=== PATIENT | female | born 1950 | race Caucasian/White ===

== ENCOUNTER 2017-06-14 09:26 | Day surgery (SDC) | payer BC, OTHER ==
[2017-06-14] MEDS ORDERED: D5 LR 1000 ML 1,000 ML IV ONE (09:51)
[2017-06-14] MEDS ORDERED: DIPRIVAN VIAL 20 ML ONE (11:39)
[2017-06-14 12:17] VITALS: BP 138/70
== END 2017-06-14 12:20 | disposition home or self-care (01) ==
LOC: SURG1 09:26
PROVIDERS: ATTEND Internal Medicine Gastroenterology
PROC: 0D757ZZ Dilation of Esophagus, Via Natural or Artificial Opening (ICD-10-PCS; principal; 2017-06-14 15:00)
PROC: 0DB88ZX Excision of Small Intestine, Via Natural or Artificial Opening Endoscopic, Diagnostic (ICD-10-PCS; principal; 2017-06-14 15:00)
PROC: 0DJ08ZZ Inspection of Upper Intestinal Tract, Via Natural or Artificial Opening Endoscopic (ICD-10-PCS; principal; 2017-06-14 15:00)
PROC: 0DB68ZX Excision of Stomach, Via Natural or Artificial Opening Endoscopic, Diagnostic (ICD-10-PCS; principal; 2017-06-14 15:00)
DX: R13.19 Other dysphagia (principal); R10.13 Epigastric pain; K20.8 Other esophagitis; K22.4 Dyskinesia of esophagus; K22.2 Esophageal obstruction; K29.60 Other gastritis without bleeding; K44.9 Diaphragmatic hernia without obstruction or gangrene; R11.2 Nausea with vomiting, unspecified; K21.9 Gastro-esophageal reflux disease without esophagitis
CPT/HCPCS: A4217; J3490; J7120

== ENCOUNTER 2017-06-21 08:28 | Day surgery (SDC) | payer BC, OTHER ==
[2017-06-21] MEDS ORDERED: D5 LR 1000 ML 1,000 ML IV ONE (08:42)
[2017-06-21] MEDS ORDERED: DIPRIVAN VIAL 20 ML ONE (09:50)
[2017-06-21 11:05] VITALS: BP 120/60
== END 2017-06-21 10:35 | disposition home or self-care (01) ==
LOC: SURG1 08:28
PROVIDERS: ATTEND Internal Medicine Gastroenterology
PROC: 0DBE8ZX Excision of Large Intestine, Via Natural or Artificial Opening Endoscopic, Diagnostic (ICD-10-PCS; principal; 2017-06-21 11:15)
PROC: 0DJD8ZZ Inspection of Lower Intestinal Tract, Via Natural or Artificial Opening Endoscopic (ICD-10-PCS; principal; 2017-06-21 11:15)
DX: R19.4 Change in bowel habit (principal); Z86.010 Personal history of colon polyps; K64.0 First degree hemorrhoids
CPT/HCPCS: A4217; J3490; J7120

== ENCOUNTER → 2017-10-17 | Outpatient (CLI) | payer BC, OTHER | LOC: RAD 15:40 | PROVIDERS: ATTEND Specialist | DX: Z12.31 Encounter for screening mammogram for malignant neoplasm of breast (principal) | CPT/HCPCS: 77067 ==

== ENCOUNTER 2018-11-25 15:58 | Inpatient (IN) ==
[2018-11-25 16:05] VITALS: BMI 30.9
[2018-11-25 16:29] LABS: BASOPHILS % (AUTO) 0.3 % (0.2-1.0); EOSINOPHILS % (AUTO) 0.5 % (0.9-2.9); HEMATOCRIT 35.2 % (36.0-47.0); HEMOGLOBIN 12.1 g/dL (12.0-16.0); LYMPHOCYTES # (AUTO) 1.6 X10^3/uL (1.3-2.9); LYMPHOCYTES % (AUTO) 20.5 % (21.0-51.0); MEAN CORPUSCULAR HGB CONC 34.5 g/dL (33.0-35.0); MEAN CORPUSCULAR VOLUME 86.9 fL (80.0-100.0); MEAN PLATELET VOLUME 8.2 fL (7.4-11.0); MONOCYTES # (AUTO) 0.6 x10^3/uL (0.3-0.8); MONOCYTES % (AUTO) 7.8 % (0.0-13.0); NEUTROPHILS # (AUTO) 5.7 x10^3/uL (2.2-4.8); NEUTROPHILS % (AUTO) 70.9 % (42.0-75.0); PLATELET COUNT 187 X10^3/uL (150.0-450.0); RED BLOOD COUNT 4.05 X10^6/uL (3.5-5.4); RED CELL DISTRIBUTION WIDTH 14.7 % (11.6-16.5)
--- NOTE | 2018-11-25 16:34 | DR.SOBA ---
HPI Time Seen Time Seen by Provider: 11/25/18 16:11 Primary Care Physician Primary Care Physician: JAROD CAIN HPI Comment HPI Comment: PAIN RLE WITH SWELLING. VENOUS DOPPLER TODAY REPORT DVT. PATIENT IS BEING HAVING SOB AND CHEST PAIN. HERE IN ED FOR CTA TO RULE OUT PE. NO FEVER. COUGHING, NON PRODUCTIVE. Complaints Chief Complaint Doctors Comments: CHEST PAIN AND SOB. HAVE DVT RLE. Chief Complaint:: PT TO HOSPITAL FOR OUT PT LEV, PT'S LEV IS POSITIVE FOR CLOT AND PT CRYING IN XRAY C/O SOB, AND SOME DISCOMFORT IN HER CHEST , JAROD CAIN NOTIFIED AND ORDERS REC'D FOR BE D/C HOME AND PLACED ON ANTI-COAGLULANT, PT STATES " I JUST DON'T FEEL COMFORABLE GOING HOME WITH HIS CLOT ". PT DENIES C/P JUST DISCOMFORT , PT IS NOT IN ANY DISTRESS , BR Self Treatment fo Chief Complaint: NONE . Reviewed Nurses Notes Reviewed: Yes Source History Provided: Patient and Family Member Mode of Arrival Mode of Arrival: Ambulatory Timing Onset of Chief Complaint: 11/18/18 Context Onset:: At Rest and With Light Exertion PE Risk Factors:: None History of:: None Currently on:: Neither Modifying Factors Worsens:: Exertion Improves:: Nothing Associated Signs and Symptoms Associated Signs and Symptoms: Chest Pain and Calf Pain (RT.) If Chest Pain Quality: Sharp Location: Right Lower Chest and Left Lower Chest If Cough Cough: Nonproductive PMH PMH Past Medical History: Yes Past Medical History: Hypertension Past Surgical History: Yes Surgical History: Cholecystectomy and Hysterectomy Past Surgical History Comment: CATARACTS, Family History History of Family Medical Conditions: No Social History Does patient currently use any type of tobacco product: No Have you used tobacco products in the last 12 months: No Type of Tobacco Use: None Does any household member use tobacco: No Alcohol Use: None Do you use any recreational Drugs:: No Lives With: Family Lives Where: Home infectious screening In the last 2 months have you had wt loss of >10#?: NO Have you had fever, night sweats or hemotysis?: No Have you traveled outside the country in the last 6 months?: No Isolation: Standard ROS Review of Systems Constitutional: Fatigue and Loss of Appetite Eyes: No Symptoms Reported ENTM: No Symptoms Reported Respiratoy: Non-Productive Cough and Short of Breath Cardiovascular: Chest Pain Gastrointestinal/Abdominal: No Symptoms Reported Genitourinary: No Symptoms Reported Neurological: No Symptoms Reported Musculoskeletal: No Symptoms Reported, Right and Leg Integumentary: No Symptoms Reported Hematologic/Lymphatic: No Symptoms Reported Endocrine: No Symptoms Reported Psychiatric: No Symptoms Reported All Other Systems: Reviewed and Negative PE Vital Signs Vitals: Pulse Rate 84 Respiratory Rate 22 Blood Pressure 154/68 O2 Sat by Pulse Oximetry 94 General Limitations: No Limitations General Appearance: Alert and In Distress Head Head Exam: Normal Inspection Eyes Eye exam: Normal Appearance ENT ENT Exam: Normal Exam Neck Neck Exam: Trachea Midline Chest Chest Inspection: Symmetric Chest Wall Rise Respiratory Respiratory Exam: Normal Lung Sounds Bilat Respiratory Exam: Bilateral: Rhonchi and Lower: Rhonchi Cardiovascular Cardiovascular Exam: Regular Rate and Normal Rhythm Abdominal Exam Abdominal Exam: Normal Inspection, Normal Bowel Sounds and Soft Extremities Extremities Exam: Tenderness (RLE SWOLLEN AND TENDER. ROM AND PULSES INTACT.) Back Back Exam: Normal Inspection Neurologic Neurological Exam: Alert and Oriented X3; negative Motor Sensory Deficit Psychiatric Psychiatric Exam: Normal Affect and Normal Mood Skin Skin Exam: Dry MDM Differential Diagnosis Differential Diagnosis: CHF, COPD, Mycardial Infarction, Pneumonia, Pneumothorax, Pulmonary embolism and Respiratory Insufficiency Differential Diagnosis Comment:: CHEST PAIN, DVT RLE. COURSE Treatment Treatment: SEE ORDERS. Consultation Consultation Comments: DR. OLIVERA WILL ADMIT PATIENT. Education/Counseling Education/Counseling: Patient and Family Educated On: Diagnosis ROR Labs Reviewed Laboratory Results Reviewed?: Yes Result Diagrams: 11/25/18 16:10 11/25/18 16:10 Laboratory: WBC 8.0 X10^3/uL (3.6-10.0) 11/25/18 16:10 RBC 4.05 X10^6/uL (3.5-5.4) 11/25/18 16:10 Hgb 12.1 g/dL (12.0-16.0) 11/25/18 16:10 Hct 35.2 % (36.0-47.0) L 11/25/18 16:10 MCV 86.9 fL (80.0-100.0) 11/25/18 16:10 MCH 30.0 pg (27.0-34.0) 11/25/18 16:10 MCHC 34.5 g/dL (33.0-35.0) 11/25/18 16:10 RDW 14.7 % (11.6-16.5) 11/25/18 16:10 Plt Count 187 X10^3/uL (150.0-450.0) 11/25/18 16:10 MPV 8.2 fL (7.4-11.0) 11/25/18 16:10 Neut % (Auto) 70.9 % (42.0-75.0) 11/25/18 16:10 Lymph % (Auto) 20.5 % (21.0-51.0) L 11/25/18 16:10 [place] % (Auto) 7.8 % (0.0-13.0) 11/25/18 16:10 Eos % (Auto) 0.5 % (0.9-2.9) L 11/25/18 16:10 Baso % (Auto) 0.3 % (0.2-1.0) 11/25/18 16:10 Neut # (Auto) 5.7 x10^3/uL (2.2-4.8) H 11/25/18 16:10 Lymph # (Auto) 1.6 X10^3/uL (1.3-2.9) 11/25/18 16:10 [place] # (Auto) 0.6 x10^3/uL (0.3-0.8) 11/25/18 16:10 Eos # (Auto) 0.0 x10^3/uL (0.0-0.2) 11/25/18 16:10 Baso # (Auto) 0.0 X10^3/uL (0.0-0.1) 11/25/18 16:10 Absolute Nucleated RBC 0.0 /100WBC 11/25/18 16:10 INR Target Range - 11/25/18 16:10 INR 0.95 (0.8-1.3) 11/25/18 16:10 APTT 24.2 SECONDS (22.9-36.5) 11/25/18 16:10 PTT Comment - 11/25/18 16:10 Sample Site Rt bra 11/25/18 17:23 ABG pH 7.460 (7.35-7.45) H 11/25/18 17:23 ABG pCO2 38.0 mmHg (35.0-45.0) 11/25/18 17:23 ABG pO2 73.0 mmHg (80.0-100.0) L 11/25/18 17:23 ABG HCO3 27.0 mmol/L (22-26) H 11/25/18 17:23 ABG O2 Saturation 95.0 % (90-100) 11/25/18 17:23 ABG Base Excess 3.1 mmol/L (-2.0-2.0) H 11/25/18 17:23 Tunde Test Na 11/25/18 17:23 A-a Gradient 29.0 mmHg 11/25/18 17:23 FiO2 21.0 11/25/18 17:23 Blood Gas Comments Valentin well gmb 11/25/18 17:23 Sodium 141 mmol/L (136-145) 11/25/18 16:10 Corrected Sodium TNP 11/25/18 16:10 Potassium 3.7 mmol/L (3.5-5.1) 11/25/18 16:10 Chloride 103 mmol/L (98-107) 11/25/18 16:10 Carbon Dioxide 25.0 mmol/L (21-32) 11/25/18 16:10 BUN 10 mg/dL (7-18) 11/25/18 16:10 Creatinine 0.71 mg/dL (0.55-1.02) 11/25/18 16:10 Est GFR (MDRD) Af Amer > 60 (>60) 11/25/18 16:10 Est GFR (MDRD) Non-Af > 60 (>60) 11/25/18 16:10 Glucose 108 mg/dL (65-99) H 11/25/18 16:10 Calcium 9.0 mg/dL (8.5-10.1) 11/25/18 16:10 Corrected Calcium 9.6 mg/dL (8.5-10.1) 11/25/18 16:10 Total Bilirubin 0.60 mg/dL (0.2-1.0) 11/25/18 16:10 AST 26 Units/L (15-37) 11/25/18 16:10 ALT 37 Units/L (12-78) 11/25/18 16:10 Alkaline Phosphatase 61 Units/L (46-116) 11/25/18 16:10 Creatine Kinase 71 Units/L (26-192) 11/25/18 16:10 CK-MB (CK-2) < 1.0 ng/mL (0-4.0) 11/25/18 16:10 CK/CKMB % Calc 1.4 % (<4) 11/25/18 16:10 Troponin I < 0.02 ng/mL (0-1.5) 11/25/18 16:10 Total Protein 6.9 g/dL (6.4-8.2) 11/25/18 16:10 Albumin 3.3 g/dL (3.4-5.0) L 11/25/18 16:10 Globulin 3.6 g/dL (2.5-4.5) 11/25/18 16:10 Albumin/Globulin Ratio 0.9 Ratio (1.1-2.1) L 11/25/18 16:10 XRAY XRAY Interpreted by: Radiologist XRAY Findings: REPORT NOTED AND DISCUSS WITH PATIENT (SEE DETAIL REPORT ON RECORD). EKG Rate: 89 [place]: Normal Rhythm: NSR Block: None Hypertrophy: None ST: Normal
[2018-11-25 16:37] LABS: ALANINE AMINOTRANSFERASE 37 Units/L (12-78); ALBUMIN 3.3 g/dL (3.4-5.0); ALKALINE PHOSPHATASE 61 Units/L (46-116); ASPARTATE AMINO TRANSFERASE 26 Units/L (15-37); BLOOD UREA NITROGEN 10 mg/dL (7-18); CHLORIDE 103 mmol/L (98-107); COR CA(FOR HYPOALB) 9.6 mg/dL (8.5-10.1); CREATININE 0.71 mg/dL (0.55-1.02); SODIUM 141 mmol/L (136-145); TOTAL PROTEIN 6.9 g/dL (6.4-8.2); eGFR NON BLACK RACES > 60 (>60)
[2018-11-25 17:04] LABS: CKMB % 1.4 % (<4); CREATINE KINASE 71 Units/L (26-192); CREATINE KINASE MB < 1.0 ng/mL (0-4.0); TROPONIN I < 0.02 ng/mL (0-1.5)
[2018-11-25] MEDS ORDERED: HEPARIN SODIUM INJ 5000 UNITS ONE (17:07)
[2018-11-25] MEDS ORDERED: HEPARIN SODIUM IN D5W 25,000 UNITS/500 ML BAG IV ONE (17:07)
[2018-11-25] MEDS ORDERED: HEPARIN SODIUM IN D5W 25,000 UNITS/500 ML BAG IV PRN (17:14)
[2018-11-25] MEDS ORDERED: HEPARIN SODIUM INJ 5000 UNITS IVP ONE (17:14)
[2018-11-25 17:28] LABS: ABG BASE EXCESS 3.1 mmol/L (-2.0-2.0)
--- NOTE | 2018-11-25 17:40 | CT ---
CT ANGIOGRAPHY OF THE CHEST CLINICAL HISTORY: 67-year-old female with shortness of breath and chest discomfort with acute DVT right lower extremity noted on venous Doppler this date. COMPARISON: None. TECHNIQUE: CT angiogram of the chest was performed following the uncomplicated administration of intravenous contrast as per routine pulmonary embolus protocol. Coronal and Sagittal reformats provided. MIP reformats are submitted for review. FINDINGS: Large filling defect at the distal main right pulmonary artery extending into the pulmonary arterial segmental and subsegmental branches of the right upper, middle and lower lobes. Filling defects within the segmental branches and extending into the subsegmental branches of the left upper lobe, lingula and left lower lobe. There is no thoracic aortic dissection. The heart is normal in size and there is no pericardial effusion. There is no axillary or mediastinal lymphadenopathy. Evaluation of the lung parenchyma demonstrates no pulmonary nodules, masses, or airspace opacities. The trachea and mainstem bronchi are patent. There is no pleural effusion or pneumothorax. No acute abnormality within the imaged upper abdomen. Mild atherosclerotic calcification of the aorta and its branches with bovine arch anatomy of the left common carotid and innominate arteries. Soft tissues are normal. The osseous structures are intact without fracture or malalignment. IMPRESSION: Distal right main pulmonary arterial embolus extending into the segmental and subsegmental branches of the right upper, middle and lower lobes; with segmental and subsegmental pulmonary arterial emboli within the left upper lobe, lingula and left lower lobe. Reported By:
[2018-11-25] MEDS ORDERED: NS 1000 ML 1,000 ML ONE (18:12)
[2018-11-25] MEDS: NS 1000 ML 1,000 ML IV SCH (18:14)
[2018-11-25] MEDS ORDERED: K-DUR TAB 20 MEQ PO PRN (20:04)
[2018-11-25] MEDS ORDERED: POTASSIUM CHL 40 MEQ/NS 0.45% 500 ML IV PRN (20:04)
[2018-11-25] MEDS ORDERED: K-RIDER 10 MEQ/NS 100 ML 10 MEQ/100 ML BAG IV PRN (20:04)
[2018-11-25] MEDS ORDERED: POTASSIUM CHLORIDE LIQ 20 MEQ UDC PO PRN (20:04)
[2018-11-25] MEDS ORDERED: KLOR-CON PO PRN (20:04)
[2018-11-25] MEDS ORDERED: POTASSIUM CHL 60 MEQ/NS 0.45% 500 ML IV PRN (20:04)
[2018-11-25] MEDS ORDERED: MICRO K EXTEN CAP 10 MEQ PO PRN (20:04)
[2018-11-25] MEDS: COREG TAB 3.125 MG PO SCH (21:03)
[2018-11-25] MEDS: NORCO 5/325 MG TAB PO PRN (21:04)
[2018-11-25] MEDS: TYLENOL 325 MG TAB PO PRN (23:57)
[2018-11-26 00:12] LABS: CREATINE KINASE 50 Units/L (26-192); CREATINE KINASE MB < 1.0 ng/mL (0-4.0); TROPONIN I < 0.02 ng/mL (0-1.5)
[2018-11-26] MEDS ORDERED: HEPARIN SODIUM INJ 5000 UNITS IVP ONE (00:34)
[2018-11-26] MEDS ORDERED: HEPARIN SODIUM INJ 5000 UNITS ONE (00:37)
[2018-11-26 06:50] LABS: BASOPHILS % (AUTO) 0.6 % (0.2-1.0); EOSINOPHILS # (AUTO) 0.1 x10^3/uL (0.0-0.2); EOSINOPHILS % (AUTO) 1.1 % (0.9-2.9); HEMATOCRIT 34.1 % (36.0-47.0); HEMOGLOBIN 11.6 g/dL (12.0-16.0); LYMPHOCYTES # (AUTO) 1.6 X10^3/uL (1.3-2.9); LYMPHOCYTES % (AUTO) 25.7 % (21.0-51.0); MEAN CORPUSCULAR HEMOGLOBIN 29.7 pg (27.0-34.0); MEAN CORPUSCULAR VOLUME 87.2 fL (80.0-100.0); MONOCYTES # (AUTO) 0.5 x10^3/uL (0.3-0.8); MONOCYTES % (AUTO) 8.1 % (0.0-13.0); NEUTROPHILS # (AUTO) 3.9 x10^3/uL (2.2-4.8); NEUTROPHILS % (AUTO) 64.5 % (42.0-75.0); PLATELET COUNT 179 X10^3/uL (150.0-450.0); RED BLOOD COUNT 3.91 X10^6/uL (3.5-5.4); RED CELL DISTRIBUTION WIDTH 14.7 % (11.6-16.5); WHITE BLOOD COUNT 6.1 X10^3/uL (3.6-10.0)
[2018-11-26 07:03] LABS: ALANINE AMINOTRANSFERASE 26 Units/L (12-78); ALBUMIN 2.7 g/dL (3.4-5.0); ALKALINE PHOSPHATASE 53 Units/L (46-116); ASPARTATE AMINO TRANSFERASE 13 Units/L (15-37); BLOOD UREA NITROGEN 5 mg/dL (7-18); CALCIUM 8.3 mg/dL (8.5-10.1); CARBON DIOXIDE 25.4 mmol/L (21-32); CHLORIDE 106 mmol/L (98-107); COR CA(FOR HYPOALB) 9.3 mg/dL (8.5-10.1); CREATININE 0.54 mg/dL (0.55-1.02); SODIUM 141 mmol/L (136-145); TOTAL PROTEIN 6.1 g/dL (6.4-8.2); eGFR NON BLACK RACES > 60 (>60)
[2018-11-26] MEDS: NORVASC TAB 5 MG PO SCH (08:15)
[2018-11-26] MEDS: PriLOSEC PO SCH (08:15)
[2018-11-26] MEDS: SYNTHROID 75 mcg TAB PO SCH (08:15)
[2018-11-26] MEDS: XARELTO PO SCH ×2 (11:12→21:04)
[2018-11-26] MEDS: NS 1000 ML 1,000 ML IV SCH (18:41)
[2018-11-26] MEDS: TYLENOL 325 MG TAB PO PRN (18:55)
--- NOTE | 2018-11-26 20:14 | DR.H&P ---
H&P - History & Physical for Day of: H&P Date: 11/25/18 - Chief Complaint Chief Complaint: DVT, SOB, CHEST PAIN - History of Present Illness History of Present Illness: IS A 68 YEAR OLD PATIENT OF OURS WHO PRESENTED TO THE EMERGENCY ROOM DUE TO COMPLAINTS OF SHORTNESS OF BREATH AND CHEST DISCOMFORT. SHE DENIES FEVER. SHE DOES HAVE A NON-PRODUCTIVE COUGH. SHE HAD AN OUTPATIENT LOWER EXTREMITY VENOUS DOPPLER TODAY WHICH REVEALED: Acute DVT seen in the right mid and distal superficial femoral vein extending into the popliteal and right posterior tibial vein. No DVT seen in the left leg. ON ARRIVAL, VITALS WERE 98.7-95-22-93%RA-178/80. LABS WERE OBTAINED. ABNORMAL LAB VALUES INCLUDE THE FOLLOWING: HCT 35.2, GLUCOSE 108, ALBUMIN 3.3. AN ABG WAS OBTAINED AND REVEALED: PH 7.460, P02 73.0, HC03 27.0, BASE EXCESS 3.1. A CHEST CTA WAS OBTAINED AND REVEALED: Distal right main pulmonary arterial embolus extending into the segmental and subsegmental branches of the right upper, middle and lower lobes; with segmental and subsegmental pulmonary arterial emboli within the left upper lobe, lingula and left lower lobe. SHE WAS STARTED ON A HEPARIN DRIP AND ADMITTED TO THE INTENSIVE CARE UNIT FOR FURTHER EVALUATION AND TREATMENT OF BILATERAL PE, DVT, AND CHEST PAIN. WE PLAN TO FOLLOW UP WITH SERIAL CARDIAC ENZYMES AND EKGS. WE WILL FOLLOW UP WITH AM LABS AND CONTINUE TO MONITOR. - Past Medical History Past Medical History: GERD, Hypertension - Past Surgical History Surgical History: Cholecystectomy, Hysterectomy - Family History Family Medical History: Hypertension - Social History Does patient currently use any type of tobacco product: No Have you used tobacco products in the last 12 months: No Type of Tobacco Use: None Does any household member use tobacco: No Alcohol Use: None Drug Use: None - Medications Home Medications: Sulfa (Sulfonamide Antibiotics) [SULFA] Allergy (Verified 11/25/18 15:59) - Review of Systems Constitutional: Weakness Eyes: No Symptoms Reported ENT: No Symptoms Reported Respiratory: See HPI, Cough, Shortness of Breath Cardiovascular: Chest Pain Gastrointestinal: No Symptoms Reported Genitourinary: No Symptoms Reported Musculoskeletal: Leg Pain (RIGHT LEG PAIN ) Skin: No Symptoms Reported Neurological: No Symptoms Reported - Physical Exam Vital Signs: Temperature 98.3 F Pulse Rate [Apical] 89 Pulse Rate 84 Respiratory Rate 20 Blood Pressure [Left Arm] 122/59 Blood Pressure 154/68 O2 Sat by Pulse Oximetry 96 Oriented: Normal Eyes: Normal Ear: Normal Nose: Normal Throat: Normal Respiratory: Diminished Throughout Cardiovascular: Normal. negative: S3, S4, Murmur : Normal Auscultation: Bowel Sounds: Normal Palpation: Normal Tenderness: Normal Skin: Normal Musculoskeletal: Right, Leg, Swelling, Tender Psychiatric: Normal Mood Description: Calm Affect: Normal Speech Pattern: Clear - Assessment/Plan (1) Bilateral pulmonary embolism Status: Acute Plan: ADMIT, HEPARIN DRIP, CONTINUE TO MONITOR (2) DVT (deep venous thrombosis) Qualifiers: DVT location: lower extremity Affected thrombotic vein of extremity: femoral Chronicity: acute Laterality: right Qualified Code(s): I82.411 - Acute embolism and thrombosis of right femoral vein Status: Acute Plan: HEPARIN DRIP, CONTINUE TO MONITOR (3) Chest pain Qualifiers: Chest pain type: unspecified Qualified Code(s): R07.9 - Chest pain, unspecified Status: Acute Plan: SERIAL CARDIAC ENZYMES AND EKGS, CONTINUE TO MONITOR - Allergies Allergies/Adverse Reactions: Allergies Allergy/AdvReac Type Severity Reaction Status Date / Time Sulfa (Sulfonamide Allergy Verified 11/25/18 15:59 Antibiotics) [SULFA]
--- NOTE | 2018-11-26 20:33 | PCM.PROG ---
Progress Note - Progress Note for Day of Date of Exam: 11/26/18 - Subjective Subjective: WAS ADMITTED FOR BILATERAL PULMONARY EMBOLISMS AND RIGHT LOWER EXTREMITY DVT. TODAY, SHE IS ALERT AND ORIENTED, LYING IN BED ON MORNING ROUNDS. SHE REMAINS IN THE INTENSIVE CARE UNIT ON A HEPARIN DRIP. SHE CONTINUES WITH SHORTNESS OF BREATH TODAY. ON EXAMINATION, HEART IS REGULAR IN RATE AND RHYTHM. BILATERAL LUNGS ARE NOTED WITH DIMINISHED LUNG SOUNDS THROUGHOUT. ABDOMEN IS ROUND, SOFT, AND NON-TENDER WITH NORMAL BOWEL SOUNDS NOTED IN ALL QUADRANTS. RIGHT LEG IS NOTED WITH REDNESS AND IS WARM TO TOUCH. HER VITALS THIS MORNING ARE 98.4-81-23-97%-122/57. LABS WERE OBTAINED. ABNORMAL LAB VALUES INCLUDE THE FOLLOWING: HGB 11.6, HCT 34.1, BUN 5, CREATININE 0.54, GLUCOSE 101, CALCIUM 8.3, AST 13, TOTAL PROTEIN 6.1, ALBUMIN 2.7. CARDIAC ENZYMES AND EKGS WITHIN NORMAL LIMITS. TODAY, WE WILL DISCONTINUE THE HEPARIN DRIP AND START XARELTO 15MG PO BID. WE WILL ALSO OBTAIN AN ECHO. OTHERWISE, WE WILL FOLLOW UP WITH AM LABS AND CONTINUE TO MONITOR. - Past Medical Family Social History Past Med/Fam/Surg Hx: No changes since H&P Allergies: Allergies Sulfa (Sulfonamide Antibiotics) [SULFA] Allergy (Verified 11/25/18 15:59) - Review of Systems ROS: No change since H&P - Vital Signs and I&O's Vital Signs: Temperature 98.3 F Pulse Rate [Apical] 89 Pulse Rate 84 Respiratory Rate 20 Blood Pressure [Left Arm] 122/59 Blood Pressure 154/68 O2 Sat by Pulse Oximetry 96 Intake and Output: Intake & Output 11/24/18 11/25/18 11/26/18 11/27/18 11:59 11:59 11:59 11:59 Intake Total 1570.0 / 1570.0 1200 / 1200 Output Total 1225 / 1225 Balance 345.0 / 345.0 1200 / 1200 - Physical Exam Oriented: Normal Eyes: Normal Ear: Normal Nose: Normal Throat: Normal Respiratory: Diminished Cardiovascular: Normal. negative: S3, S4, Murmur : Normal Auscultation: Bowel Sounds: Normal Palpation: Normal Tenderness: Normal Skin: Normal Musculoskeletal: Right, Leg, Swelling, Tender Psychiatric: Normal Mood Description: Calm Affect: Normal Speech Pattern: Clear - Laboratory and Diagnostics Result Diagrams: 11/26/18 06:32 11/26/18 06:32 Labs: Laboratory WBC 6.1 X10^3/uL (3.6-10.0) 11/26/18 06:32 RBC 3.91 X10^6/uL (3.5-5.4) 11/26/18 06:32 Hgb 11.6 g/dL (12.0-16.0) L 11/26/18 06:32 Hct 34.1 % (36.0-47.0) L 11/26/18 06:32 MCV 87.2 fL (80.0-100.0) 11/26/18 06:32 MCH 29.7 pg (27.0-34.0) 11/26/18 06:32 MCHC 34.0 g/dL (33.0-35.0) 11/26/18 06:32 RDW 14.7 % (11.6-16.5) 11/26/18 06:32 Plt Count 179 X10^3/uL (150.0-450.0) 11/26/18 06:32 MPV 8.0 fL (7.4-11.0) 11/26/18 06:32 Neut % (Auto) 64.5 % (42.0-75.0) 11/26/18 06:32 Lymph % (Auto) 25.7 % (21.0-51.0) 11/26/18 06:32 [place] % (Auto) 8.1 % (0.0-13.0) 11/26/18 06:32 Eos % (Auto) 1.1 % (0.9-2.9) 11/26/18 06:32 Baso % (Auto) 0.6 % (0.2-1.0) 11/26/18 06:32 Neut # (Auto) 3.9 x10^3/uL (2.2-4.8) 11/26/18 06:32 Lymph # (Auto) 1.6 X10^3/uL (1.3-2.9) 11/26/18 06:32 [place] # (Auto) 0.5 x10^3/uL (0.3-0.8) 11/26/18 06:32 Eos # (Auto) 0.1 x10^3/uL (0.0-0.2) 11/26/18 06:32 Baso # (Auto) 0.0 X10^3/uL (0.0-0.1) 11/26/18 06:32 Absolute Nucleated RBC 0.1 /100WBC 11/26/18 06:32 INR Target Range - 11/26/18 06:32 INR 1.02 (0.8-1.3) 11/26/18 06:32 APTT 38.8 SECONDS (22.9-36.5) H 11/26/18 13:25 PTT Comment - 11/26/18 13:25 Sample Site Rt bra 11/25/18 17:23 ABG pH 7.460 (7.35-7.45) H 11/25/18 17:23 ABG pCO2 38.0 mmHg (35.0-45.0) 11/25/18 17:23 ABG pO2 73.0 mmHg (80.0-100.0) L 11/25/18 17:23 ABG HCO3 27.0 mmol/L (22-26) H 11/25/18 17:23 ABG O2 Saturation 95.0 % (90-100) 11/25/18 17:23 ABG Base Excess 3.1 mmol/L (-2.0-2.0) H 11/25/18 17:23 Tunde Test Na 11/25/18 17:23 A-a Gradient 29.0 mmHg 11/25/18 17:23 FiO2 21.0 11/25/18 17:23 Blood Gas Comments Valentin well gmb 11/25/18 17:23 Sodium 141 mmol/L (136-145) 11/26/18 06:32 Corrected Sodium TNP 11/26/18 06:32 Potassium 3.8 mmol/L (3.5-5.1) 11/26/18 06:32 Chloride 106 mmol/L (98-107) 11/26/18 06:32 Carbon Dioxide 25.4 mmol/L (21-32) 11/26/18 06:32 BUN 5 mg/dL (7-18) L 11/26/18 06:32 Creatinine 0.54 mg/dL (0.55-1.02) L 11/26/18 06:32 Est GFR (MDRD) Af Amer > 60 (>60) 11/26/18 06:32 Est GFR (MDRD) Non-Af > 60 (>60) 11/26/18 06:32 Glucose 101 mg/dL (65-99) H 11/26/18 06:32 Calcium 8.3 mg/dL (8.5-10.1) L 11/26/18 06:32 Corrected Calcium 9.3 mg/dL (8.5-10.1) 11/26/18 06:32 Magnesium 2.3 mg/dL (1.7-2.9) 11/25/18 16:10 Total Bilirubin 0.60 mg/dL (0.2-1.0) 11/26/18 06:32 AST 13 Units/L (15-37) L 11/26/18 06:32 ALT 26 Units/L (12-78) 11/26/18 06:32 Alkaline Phosphatase 53 Units/L (46-116) 11/26/18 06:32 Creatine Kinase 50 Units/L (26-192) 11/25/18 23:35 CK-MB (CK-2) < 1.0 ng/mL (0-4.0) 11/25/18 23:35 CK/CKMB % Calc 2.0 % (<4) 11/25/18 23:35 Troponin I < 0.02 ng/mL (0-1.5) 11/25/18 23:35 Total Protein 6.1 g/dL (6.4-8.2) L 11/26/18 06:32 Albumin 2.7 g/dL (3.4-5.0) L 11/26/18 06:32 Globulin 3.4 g/dL (2.5-4.5) 11/26/18 06:32 Albumin/Globulin Ratio 0.8 Ratio (1.1-2.1) L 11/26/18 06:32 - Plan (1) Bilateral pulmonary embolism Status: Acute Plan: DISCONTINUE HEPARIN DRIP, START XARELTO 15MG PO BID, CONTINUE TO MONITOR (2) DVT (deep venous thrombosis) Status: Acute Qualifiers: DVT location: lower extremity Affected thrombotic vein of extremity: femoral Chronicity: acute Laterality: right Qualified Code(s): I82.411 - Acute embolism and thrombosis of right femoral vein Plan: DISCONTINUE HEPARIN DRIP, START XARELTO 15MG PO BID, CONTINUE TO MONITOR (3) Chest pain Status: Acute Qualifiers: Chest pain type: unspecified Qualified Code(s): R07.9 - Chest pain, unspecified Plan: SERIAL CARDIAC ENZYMES AND EKGS, CONTINUE TO MONITOR
[2018-11-26] MEDS: COREG TAB 3.125 MG PO SCH (21:03)
[2018-11-26] MEDS: NORCO 5/325 MG TAB PO PRN (21:05)
[2018-11-26 23:38] LABS: CKMB % 2.5 % (<4); CREATINE KINASE 40 Units/L (26-192); CREATINE KINASE MB < 1.0 ng/mL (0-4.0); TROPONIN I < 0.02 ng/mL (0-1.5)
[2018-11-27 05:55] LABS: BASOPHILS % (AUTO) 0.3 % (0.2-1.0); EOSINOPHILS % (AUTO) 0.6 % (0.9-2.9); HEMOGLOBIN 12.1 g/dL (12.0-16.0); LYMPHOCYTES # (AUTO) 1.5 X10^3/uL (1.3-2.9); LYMPHOCYTES % (AUTO) 27.6 % (21.0-51.0); MEAN CORPUSCULAR HEMOGLOBIN 29.7 pg (27.0-34.0); MEAN CORPUSCULAR HGB CONC 33.6 g/dL (33.0-35.0); MEAN CORPUSCULAR VOLUME 88.4 fL (80.0-100.0); MONOCYTES # (AUTO) 0.4 x10^3/uL (0.3-0.8); MONOCYTES % (AUTO) 7.9 % (0.0-13.0); NEUTROPHILS # (AUTO) 3.5 x10^3/uL (2.2-4.8); NEUTROPHILS % (AUTO) 63.6 % (42.0-75.0); PLATELET COUNT 223 X10^3/uL (150.0-450.0); RED BLOOD COUNT 4.08 X10^6/uL (3.5-5.4); WHITE BLOOD COUNT 5.4 X10^3/uL (3.6-10.0)
[2018-11-27 06:13] LABS: ALANINE AMINOTRANSFERASE 20 Units/L (12-78); ALBUMIN 2.8 g/dL (3.4-5.0); ALKALINE PHOSPHATASE 56 Units/L (46-116); ASPARTATE AMINO TRANSFERASE 8 Units/L (15-37); BLOOD UREA NITROGEN 11 mg/dL (7-18); CALCIUM 8.7 mg/dL (8.5-10.1); CARBON DIOXIDE 27.7 mmol/L (21-32); CHLORIDE 104 mmol/L (98-107); COR CA(FOR HYPOALB) 9.7 mg/dL (8.5-10.1); COR NA(FOR HYPERGLY) 140 mmol/L (136-145); CREATININE 0.67 mg/dL (0.55-1.02); SODIUM 140 mmol/L (136-145); TOTAL PROTEIN 6.5 g/dL (6.4-8.2); eGFR NON BLACK RACES > 60 (>60)
[2018-11-27] MEDS: XARELTO PO SCH (08:00)
[2018-11-27] MEDS: PriLOSEC PO SCH (08:00)
[2018-11-27] MEDS: SYNTHROID 75 mcg TAB PO SCH (08:00)
[2018-11-27] MEDS: NORVASC TAB 5 MG PO SCH (08:00)
[2018-11-27 10:05] VITALS: BP 118/56
== END 2018-11-27 11:10 | disposition home or self-care (01) | DRG 176 ==
LOC: ER 15:58 → ICU 17:22
PROVIDERS: ADMIT Internal Medicine; ATTEND Internal Medicine
DX: R60.0 Localized edema; R06.02 Shortness of breath; I10 Essential (primary) hypertension; I26.99 Other pulmonary embolism without acute cor pulmonale; I82.441 Acute embolism and thrombosis of right tibial vein; I82.431 Acute embolism and thrombosis of right popliteal vein; I82.411 Acute embolism and thrombosis of right femoral vein; K21.9 Gastro-esophageal reflux disease without esophagitis; R07.89 Other chest pain
CPT/HCPCS: 36415; 36600; 71275; 80053; 82550; 82553; 82803; 83735; 84484; 85025; 85610; 85730; 93005; 93306; 96365; 96374; 99282; 99285; A4222; J1644; J3490; J7030

== ENCOUNTER 2025-06-11 13:28 | Observation (INO) ==
[2025-06-11] MEDS ORDERED: CONSULT PHARMACY - ANTIBIOTIC XX SCH (16:00)
[2025-06-11 16:34] VITALS: BMI 30.3
[2025-06-11 16:46] LABS: MEAN PLATELET VOLUME 9.3 fL (7.4-11.0); RED CELL DISTRIBUTION WIDTH 14.1 % (11.6-16.5)
[2025-06-11 16:48] LABS: CREATININE 0.48 mg/dL (0.55-1.02); eGFR NON BLACK RACES > 60 (>60)
[2025-06-11] MEDS: INVanz INJ 1 GRAM VIAL 1 G in NS 100 ML IV 100 ML IV SCH (17:30)
[2025-06-11] MEDS: NS 500 ML IV 500 ML IV ONE (17:30)
--- NOTE | 2025-06-11 19:47 | DR.H&P ---
H&P History & Physical for Day of: H&P Date: 06/11/25 Chief Complaint Chief Complaint: Dysuria History of Present Illness History of Present Illness: Patient is a 74-year-old female with a past medical history of hypertension, hypothyroidism, admitted directly from clinic after failing outpatient treatment. She reports symptoms of dysuria. Denies fevers or chills. Reports suprapubic pain. She had outpatient urine culture that returned positive for E. coli ESBL. She was being treated at the time with ciprofloxacin that is resistant. Labs: WBC 4.6, hemoglobin 13, platelets 248, sodium 138, potassium 4.2, creatinine 0.48, glucose 94. Patient was admitted for E. coli ESBL cystitis. She will be treated with IV antibiotics Invanz. Will restart home medications. Otherwise continue with current treatment plan. Continue closely monitor and follow-up labs. Past Medical History Past Medical History: GERD, Hypertension and SVT Past Surgical History Surgical History: Cholecystectomy, Hysterectomy and Tonsillectomy Family History Family Medical History: Diabetes Mellitus, Cancer, [place], Coronary Artery Disease and Hypertension Social History Type of Tobacco Use: None Does any household member use tobacco: No Alcohol Use: None Drug Use: None Allergies Allergies Allergy/AdvReac Type Severity Reaction Status Date / Time sulfadimethoxine Allergy Unknown Verified 05/19/25 13:11 Sulfa (Sulfonamide Allergy Verified 05/19/25 13:11 Antibiotics) (SULFA) [id number] Reductase AdvReac Verified 05/19/25 13:11 Inhibitor Labs 06/11/25 16:09 06/11/25 16:09 Labs: Laboratory WBC 4.6 X10^3/uL (3.6-10.0) 06/11/25 16:09 RBC 4.48 X10^6/uL (3.5-5.4) 06/11/25 16:09 Hgb 13.0 g/dL (12.0-16.0) 06/11/25 16:09 Hct 38.1 % (36.0-47.0) 06/11/25 16:09 MCV 84.9 fL (80.0-100.0) 06/11/25 16:09 MCH 28.9 pg (27.0-34.0) 06/11/25 16:09 MCHC 34.1 g/dL (33.0-35.0) 06/11/25 16:09 RDW 14.1 % (11.6-16.5) 06/11/25 16:09 Plt Count 248 X10^3/uL (150.0-450.0) 06/11/25 16:09 MPV 9.3 fL (7.4-11.0) 06/11/25 16:09 Neut % (Auto) 38.8 % (42.0-75.0) L 06/11/25 16:09 Lymph % (Auto) 46.6 % (21.0-51.0) 06/11/25 16:09 [place] % (Auto) 10.6 % (0.0-13.0) 06/11/25 16:09 Eos % (Auto) 3.2 % (0.9-2.9) H 06/11/25 16:09 Baso % (Auto) 0.8 % (0.2-1.0) 06/11/25 16:09 Neut # (Auto) 1.8 x10^3/uL (2.2-4.8) L 06/11/25 16:09 Lymph # (Auto) 2.2 X10^3/uL (1.3-2.9) 06/11/25 16:09 [place] # (Auto) 0.5 x10^3/uL (0.3-0.8) 06/11/25 16:09 Eos # (Auto) 0.1 x10^3/uL (0.0-0.2) 06/11/25 16:09 Baso # (Auto) 0.0 X10^3/uL (0.0-0.1) 06/11/25 16:09 Absolute Nucleated RBC 0.3 /100WBC 06/11/25 16:09 Sodium 138 mmol/L (136-145) 06/11/25 16:09 Corrected Sodium TNP 06/11/25 16:09 Potassium 4.2 mmol/L (3.5-5.1) 06/11/25 16:09 Chloride 104 mmol/L (98-107) 06/11/25 16:09 Carbon Dioxide 27.7 mmol/L (21-32) 06/11/25 16:09 BUN 10 mg/dL (7-18) 06/11/25 16:09 Creatinine 0.48 mg/dL (0.55-1.02) L 06/11/25 16:09 Est GFR (MDRD) Af Amer > 60 (>60) 06/11/25 16:09 Est GFR (MDRD) Non-Af > 60 (>60) 06/11/25 16:09 Glucose 94 mg/dL (65-99) 06/11/25 16:09 Calcium 8.9 mg/dL (8.5-10.1) 06/11/25 16:09 Corrected Calcium TNP 06/11/25 16:09 Total Bilirubin 0.90 mg/dL (0.2-1.0) 06/11/25 16:09 AST 28 Units/L (15-37) 06/11/25 16:09 ALT 21 Units/L (12-78) 06/11/25 16:09 Alkaline Phosphatase 75 Units/L (46-116) 06/11/25 16:09 Total Protein 8.4 g/dL (6.4-8.2) H 06/11/25 16:09 Albumin 4.5 g/dL (3.4-5.0) 06/11/25 16:09 Globulin 3.9 g/dL (2.5-4.5) 06/11/25 16:09 Albumin/Globulin Ratio 1.2 Ratio (1.1-2.1) 06/11/25 16:09 Review of Systems Constitutional: No Symptoms Reported Eyes: No Symptoms Reported ENT: No Symptoms Reported Respiratory: No Symptoms Reported Cardiovascular: No Symptoms Reported Gastrointestinal: No Symptoms Reported Genitourinary: Dysuria Musculoskeletal: No Symptoms Reported Skin: No Symptoms Reported Neurological: No Symptoms Reported Physical Exam Vital Signs: Vital Signs Temperature 98.3 F Pulse Rate [Radial] 70 Respiratory Rate 18 Blood Pressure [Left Arm] 156/73 O2 Sat by Pulse Oximetry 95 Oriented: Normal Eyes: Normal Ear: Normal Nose: Normal Throat: Normal Respiratory: Clear Throughout Cardiovascular: Normal : Normal Auscultation: Bowel Sounds: Normal Palpation: Normal Tenderness: Suprapubic Skin: Normal Musculoskeletal: Normal Psychiatric: Normal Mood Description: Calm and Appropriate Affect: Normal Speech Pattern: Clear and Appropriate Assessment/Plan (1) UTI due to extended-spectrum beta lactamase (ESBL) producing Escherichia coli: Status: Acute Plan: IV invanz continue to monitor (2) Hypertension: Qualifiers: Hypertension type: primary hypertension Qualified Code(s): I10 - Essential (primary) hypertension Status: None (3) Hypothyroidism: Qualifiers: Hypothyroidism type: unspecified Qualified Code(s): E03.9 - Hypothyroidism, unspecified Status: None Review H&P Reviewed: Yes Patient was examined?: Yes
[2025-06-11] MEDS: COREG TAB 3.125 MG PO SCH (20:04)
[2025-06-12 05:56] LABS: MEAN PLATELET VOLUME 9.3 fL (7.4-11.0); RED CELL DISTRIBUTION WIDTH 13.8 % (11.6-16.5)
[2025-06-12 06:16] LABS: CREATININE 0.58 mg/dL (0.55-1.02); eGFR NON BLACK RACES > 60 (>60)
[2025-06-12] MEDS ORDERED: CONSULT PHARMACY - POTASSIUM & MAGNESIUM XX SCH (07:00)
[2025-06-12 08:12] VITALS: PULSE 65; RESP 18
[2025-06-12] MEDS: K-DUR TAB 20 MEQ PO ONE (08:45)
[2025-06-12] MEDS: NORVASC TAB 5 MG PO SCH (08:51)
[2025-06-12 12:01] VITALS: BP 142/66; TEMP 98.1; O2SAT 98
== END 2025-06-12 12:00 | disposition home or self-care (01) ==
LOC: MED/SURG 15:41 → INTOOBSV 15:41
PROVIDERS: ADMIT Family Medicine; ATTEND Family Medicine
DX: I10 Essential (primary) hypertension; R00.2 Palpitations; B96.29 Other Escherichia coli [E. coli] as the cause of diseases classified elsewhere; R10.33 Periumbilical pain; N39.0 Urinary tract infection, site not specified; Z29.89 Encounter for other specified prophylactic measures; E03.8 Other specified hypothyroidism; Z16.12 Extended spectrum beta lactamase (ESBL) resistance